=== PATIENT | female | born 1950 | race Caucasian/White ===

== ENCOUNTER 2021-08-16 15:49 | Observation (INO) | payer MEDICARE, SELFPAY ==
[2021-08-16] VITALS (17 sets, daily range): BP systolic 109–135; BP diastolic 52–105; PULSE 68–82; RESP 13–27; TEMP 36.2–36.6; O2SAT 97–100; BMI 38.3
--- NOTE | ~2021-08-16 | US_ITS ---
EXAMINATION: US carotid duplex BI DATE: 08/18/2021 12:12 INDICATION: Pontine infarct. TECHNIQUE: Grayscale, color Doppler, and pulsed Doppler images of the cervical carotid arteries were obtained. The degree of vessel stenosis is placed in one of the following categories: normal, <50%, 5 0-69%, >=70% but less than near-occlusion, near-occlusion, or total occlusion. Note that percent sten osis relative to normal distal artery lumen diameter is indirectly measured from velocity measurement s as described by Mukul, et al. Radiology 2003; 229:340-346. COMPARISON: None. FINDINGS: RIGHT: The right common carotid artery (CCA) peak systolic velocity (PSV) is 95 cm/s. The right internal car otid artery (ICA) PSV is 118 cm/s. The right ICA end-diastolic velocity (EDV) is 17 cm/s. The right I CA/CCA PSV ratio is 1.2. Grayscale and color Doppler images yield an estimate of <50% diameter reduct ion from plaque in the ICA. There is antegrade flow in the right vertebral artery. LEFT: The left CCA PSV is 104 cm/s. The left ICA PSV is 123 cm/s. The left ICA EDV is 11 cm/s. The left ICA /CCA PSV ratio is 1.2. Grayscale and color Doppler images yield an estimate of <50% diameter reductio n from plaque in the ICA. There is antegrade flow in the left vertebral artery. IMPRESSION: 1. <50% stenosis in the right internal carotid artery. 2. <50% stenosis in the left internal carotid artery. Reviewed, dictated and finalized at location A. GER CREDIT RISK
--- NOTE | ~2021-08-16 | MR_ITS ---
EXAMINATION: MR brain/brain stem wo/w con DATE: 08/17/2021 12:47 INDICATION: Left arm numbness TECHNIQUE: Magnetic resonance imaging (MRI) of the brain and brainstem was performed without and with 15 mL Multihance intravenous contrast. Sequences included sagittal and axial T1-weighted SE, axial d iffusion-weighted FS SE, axial T2*-weighted GRE, axial T2-weighted FLAIR, and axial T2-weighted FSE. Postcontrast axial and coronal T1-weighted SE was obtained. Apparent diffusion coefficient (ADC) maps were created. COMPARISON: 07/27/2021 FINDINGS: Decrease in size and degree of restricted diffusion to a now subacute infarct at the left side of the central amanda. No new regions of restricted diffusion to suggest acute infarction. No intracranial he morrhage or abnormal intracranial mass lesion. Stable appearance of scattered areas of nonspecific in creased T2-weighted signal intensity in the cerebral white matter, predominantly involving the deep a nd periventricular white matter. Small focus of susceptibility artifact on the T2*weighted images at the right cerebellum which is more subtle but present at this location on the prior study which likel y represents sequela of chronic nonspecific microhemorrhage at this location. There are no intraparen chymal signal abnormalities seen on the other pulse sequences. No abnormally enhancing lesions identi fied. The ventricles are symmetric and normal in size. There are no abnormal extra-axial fluid collec tions. Flow voids are seen in the cerebral arteries on the T2-weighted sequences consistent with thei r expected patency. Visualized orbits and soft tissues are unremarkable. IMPRESSION: 1. Interval evolution of a small now subacute infarct in the left amanda. No acute intracranial process or other more acute infarcts. 2. Single small focus of susceptibility artifact related to chronic microhemorrhage at the right cere bellum. 3. 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 Reviewed, dictated and finalized at location A. 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 Interval evolution of a small now subacute infarct in the left amanda. No acut e intracranial process or other more acute infarcts. 2. Single small focus of susceptibility artifact related to chronic microhemorr suzie at the right cerebellum. 3. Stable appearance of mild nonspecific cerebral white matter T2 hyperintensit y consistent with chronic small vessel ischemic disease.
--- NOTE | ~2021-08-16 | CT_ITS ---
EXAMINATION: CT brain wo con DATE: 08/16/2021 18:30 INDICATION: Left arm numbness and tingling TECHNIQUE: Computed tomography (CT) of the head was performed without intravenous contrast. The mA wa s adjusted according to patient size. Iterative reconstruction technique was employed. Exam dose: 60 5.33 mGy-cm total exam DLP. COMPARISON: 07/27/2021 MRI brain 01/22/2017 CT brain FINDINGS: No intracranial mass lesion or hemorrhage or cerebrovascular accident is detected. Bilateral carotid siphon internal carotid artery calcification. There is nonspecific diminished attenuation cerebral white matter, likely due to chronic small vessel ischemic changes. There is a focal area of subtle asymmetric lower attenuation in the posterior righ t parietal white matter; consider MRI correlation No subdural or epidural hematoma. No fracture or bone destruction of the cranial vault. Included paranasal sinuses and mastoid air marjan ls are normally developed and aerated. IMPRESSION: Cerebral atherosclerosis, chronic probable small vessel ischemic changes of cerebral whi te matter Focal subtle area of asymmetric relatively lower attenuation of the posterior right parietal white ma tter; consider MR correlation Reviewed, dictated and finalized at Location A. Reviewed, dictated and finalized at location A. IMPRESSION: Cerebral atherosclerosis, chronic probable small vessel ischemic c hanges of cerebral white matter Focal subtle area of asymmetric relatively lower attenuation of the posterior r ight parietal white matter; consider MR correlation
--- NOTE | 2021-08-16 16:12 | ECG_ITS ---
Measurements Intervals [place] Rate: 76 P: 18 [place]: 160 QRS: -1 QRSD: 101 T: 72 QT: 381 QTc: 431 Interpretive Statements SINUS RHYTHM LOW QRS VOLTAGE IN PRECORDIAL LEADS BORDERLINE ST-T WAVE ABNORMALITY- HIGH LATERAL LEADS BASELINE ARTIFACT- II, III, AVR, AVL, AVF, V1-V6 BORDERLINE ECG Electronically Signed On 08-16-2021 16:37:39 CDT by James Capellan D.O.
[2021-08-16 16:16] LABS: Glucose Point of Care 119 mg/dl (65-105)
[2021-08-16 17:02] LABS: Basophils Absolute Auto 0.1 K/mm3 (0.0-0.1); Basophils Percent Auto 0.8 % (0.2-1.2); Eosinophils Absolute Auto 0.2 K/mm3 (0-0.3); Eosinophils Percent Auto 2.8 % (0-4.4); Hematocrit 39.2 % (37.0-47.0); Hemoglobin 12.6 g/dL (12.0-15.0); Immature Granulocyte Absolute 0.02 K/mm3 (0.00-0.031); Immature Granulocyte Percent A 0.3 % (0-0.5); Lymphocytes Absolute Auto 1.11 K/mm3 (0.9-3.2); Lymphocytes Percent Auto 18.6 % (18.3-44.2); Mean Corpuscular HGB Conc 32.1 g/dl (32-36); Mean Corpuscular Hemoglobin 28.5 pg (26-34); Mean Corpuscular Volume 88.7 fl (80-100); Mean Platelet Volume 10.6 fl (7.4-10.4); Monocytes Absolute Auto 0.5 K/mm3 (0.1-0.6); Neutrophils Absolute Auto 4.1 K/mm3 (1.3-6.7); Neutrophils Percent Auto 69.5 % (45.5-73.1); Platelet Count Result 292 k/mm3 (150-375); Red Blood Count 4.42 M/mm3 (4.2-5.4); Red Cell Distribution Width 14.3 % (11.5-14.5)
[2021-08-16 17:17] LABS: Alanine Aminotransferase 29 U/L (4-35); Alkaline Phosphatase 73 U/L (38-126); Anion Gap 8 mmol/L (8-16); Aspartate Amino Transferase 34 U/L (14-36); Bilirubin,Total 0.5 mg/dL (0.2-1.3); Blood Urea Nitrogen 13 mg/dL (7-17); Calcium 9.7 mg/dL (8.4-10.2); Carbon Dioxide 21 mmol/L (22-30); Chloride 108 mmol/L (98-107); Estimated CRCL calculation 77 ml/min; Estimated Glomerular Filt Rate > 60; Glucose 122 mg/dL (65-110); Potassium 4.6 mmol/L (3.4-5.0); Sodium 137 mmol/L (137-145)
[2021-08-16 17:27] LABS: Troponin I < 0.012 ng/mL (0.000-0.034)
--- NOTE | 2021-08-16 18:53 | ED.GENADULT ---
HPI - General Adult General Chief complaint: Neuro Symptoms/Deficit Stated complaint: L ARM PAIN AND TINGLING Time Seen by Provider: 08/16/21 16:10 History of Present Illness HPI narrative: Patient is a 71-year-old female who presents ER with concerns for CVA. She reports she woke up while sleeping and had pain in her left shoulder and pain in her left arm. She has some tingling going into her fingers. It was 8/10 pain. She then took a [place] and it has gone down to 2/10 pain. Patient recently discharged from [facility] after having a CVA. She is currently at [facility]. Denies any weakness. No facial droop or slurred speech. Patient is currently taking aspirin as she has finished her 21 days of Plavix. Patient had 2 strokes last month. Related Data Allergies Allergy/AdvReac Type Severity Reaction Status Date / Time azithromycin Allergy Intermediate Rash Verified 07/21/21 17:53 Penicillins Allergy Intermediate Rash Verified 07/21/21 17:53 Review of Systems Review of Systems: All systems reviewed & are unremarkable except as noted in HPI and below Constitutional: Constitutional: Denies chills, Denies fever(s) and Denies weakness Cardiovascular: Cardiovascular: Denies chest pain, Denies rapid heart rate and Denies radiating jaw, neck or arm pain Respiratory: Respiratory: Denies cough and Denies dyspnea Gastrointestinal: Gastrointestinal: Denies abdominal pain, Denies nausea and Denies vomiting Musculoskeletal: Musculoskeletal: Denies back pain, Denies arthralgias, Denies joint swelling and Denies muscle cramps Comments: Left arm pain but not in the joint. Neurologic: Denies focal weakness (Chronic right upper extremity weakness) and Reports numbness PMFSH Past Medical History Medical History (Updated 08/16/21 @ 19:27 by Az Tovar MD) Bipolar 1 disorder CVA (cerebral vascular accident) Hyperlipidemia Hypertension Insomnia Irritable bowel syndrome Surgical History Surgical History (Updated 08/16/21 @ 18:56 by Az Tovar MD) History of inguinal hernia repair Family History Family History (Updated 07/21/21 @ 17:57 by Simona Olivo RN) Daughter No problems noted. Mother FH: mental illness Father FH: mental illness Cancer Cerebrovascular accident Social History Social History (Updated 07/21/21 @ 16:32 by Linda Johnson DO) Social History: single-story home, lives alone. Daughter will assist with medications and will hire someone for housekeeping and laundry. Patient's daughter lives close Smoking status: Never smoker Alcohol intake: never Substance use: never Substance use type: does not use Gender identity (if verbalized by the patient): Female Spiritual care concerns: No Agree to blood products: No Exam Narrative: GENERAL: Chronically ill-appearing, well-nourished, and in no acute distress. HEAD: Normocephalic, atraumatic. EYES: PERRL and EOMI. CHEST: Clear to auscultation. No respiratory distress. HEART: Regular rate and rhythm. Normal peripheral pulses. ABDOMEN: Soft, nontender, nondistended. EXTREMITIES: Paralysis right upper extremity with contracture. Normal strength of the right upper extremity. Patient able to lift her lower extremities. SKIN: Warm, dry, no rash. No bruising to left arm unrevealing. Extends from hand up past the elbow. NEURO: Alert and oriented x3. No facial droop or dysarthria. No expressive aphasia. Normal strength in her left upper extremity which is the area of concern. PSYCH: Normal mood and affect. Course Course Emergency Course: Troponin negative. Irregularity on CT scan on the right side posteriorly. Discussed this result with the patient and her daughter. We will plan admission to the hospital with observation. Will obtain MRI. Discussed with Dr. Woods. Will restart plavix. Vital Signs Vital signs: Vital Signs Temperature 97.1 F L 08/16/21 15:51 Pulse Rate 79 08/16/21 15
--- NOTE | 2021-08-16 19:25 | PC.NURSE ---
Assumed care of pt at this time. Pt alert and upright on stretcher, states she no longer has numbness/tingling in extremity. Pt and family updated on POC.
[2021-08-16] MEDS: CLOPIDOGREL BISULFATE 75 MG TABLET PO (20:48)
--- NOTE | 2021-08-16 21:42 | PC.NURSE ---
This patient, Brandie Powell, was admitted to IMU Room 232-01 on 08/15/21 at 1923. Patient/family oriented to hospital policies and general routines including ID bracelet, bed and alarms, visiting hours, pain management, procedures, bathroom and other care routines, personal items, smoking policy, room service/diet, and visiting hours. Information on how to activate the Rapid Response Team has been discussed. Patient/Family are encouraged to report perceived risks to care and to ask questions if they do not understand what they are told or what they should do.
--- NOTE | 2021-08-16 21:45 | PM.IMHP ---
H&P: HPI History of Present Illness Date/Time: 08/16/21 20:55 Chief Complaint: Left arm pain and numbness Narrative: 71-year-old female with a past medical history of hypertension, hyperlipidemia, recently diagnosed diabetes, and 2 strokes in July 2021 who presented to the ER from [facility] due to new onset of left arm pain, numbness and tingling. The patient reports she laid down to take a nap and woke from sleep at 2:30 p.m. due to arm pain. She was initially having significant difficulty moving the arm and was dropping things. She denied any weakness in her left lower extremity or any left lower extremity pain. She denies having slept on her arm. She is still having some the not missing tingling in her arm. She did take a pain pill which decreased her pain from an 8/10 in intensity down to a 2/10 in intensity. She has come chronic right-sided facial droop due to her previous stroke. 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 She occasionally feels like she has cotton in her mouth and has intermittent difficulty speaking but nothing new today. She denies any vision changes. She denies any current headache. She does have a known enlarged thyroid the diagnosed in July with her for stroke but she has not followed up with her outpatient thyroid ultrasound yet. She denies any actual thyroid disease. She was recently diagnosed with diabetes and started on metformin. Her glucoses have been in the low 110-130 range. She reports a good appetite and states that she is hungry. She does have a large neck circumference and is obese. She denies a history of being tested for obstructive sleep apnea. She denies excessive daytime sleepiness. She has never had cardiac rhythm issue or history of AFib. She was placed on Plavix initially following her stroke and was recently transitioned back down to aspirin after completing 21 days of Plavix. Review of Systems Review of Systems: 12 systems were reviewed with pertinent positives and negatives per HPI. Except as documented in the HPI, all other systems were reviewed and are negative. [facility] Past Medical History Medical History Bipolar 1 disorder CVA (cerebral vascular accident) Hyperlipidemia Hypertension Insomnia Irritable bowel syndrome Surgical History Surgical History (Updated 08/16/21 @ 21:51 by Jennifer Govea DO) History of gastric bypass She initially a gastric bypass surgery in approximately 1977. Then in the she had dehiscence of her fernando and had to have a partial bowel resection. History of inguinal hernia repair Hx of cholecystectomy Family History Family History Daughter No problems noted. Mother FH: mental illness Father FH: mental illness Cancer Cerebrovascular accident Social History Social History (Updated 08/16/21 @ 21:54 by Jennifer Govea DO) Social History: She has been for 8 years. prior to her stroke July 2021 the patient lived in her own home and was independent in activities of daily living. Following her stroke she went to acute rehab and then moved to [facility] where her daughter works. She is a lifelong nonsmoker and does not drink alcohol or use illicit substances. She is currently ambulating with a walker. 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 She has 1 daughter. Code status: Full code Healthcare power of litigation attorney: Daughter Smoking status: Never smoker Alcohol intake: never Substance use: never Occupation/Education: retired Additional occupation/education comments: [employer] Gender identity (if verbalized by the patient): Female Spiritual care concerns: No Agree to blood products: No Meds Home Medications and Allergies Home Medications Medication Instructions Recorded Confirmed Type Unisom 1 ea PO HS
[2021-08-16 21:46] LABS: Troponin I < 0.012 ng/mL (0.000-0.034)
[2021-08-16 21:46] LABS: Glucose Point of Care 105 mg/dl (65-105)
[2021-08-16] MEDS: ALPRAZolam (*CRX) 0.5 MG TABLET PO (23:38)
[2021-08-16] MEDS: ATORVASTATIN 40 MG TABLET PO (23:38)
[2021-08-16 23:49] LABS: Troponin I < 0.012 ng/mL (0.000-0.034)
[2021-08-17] VITALS (14 sets, daily range): BP systolic 106–129; BP diastolic 45–70; PULSE 68–86; RESP 18–22; TEMP 35.9–37; O2SAT 93–99
[2021-08-17] MEDS: ACETAMINOPHEN 325 MG TABLET 650 MG PO ×5 (00:03→20:25)
[2021-08-17] MEDS: diphenhydrAMINE HCl CAP 25 MG CAPSULE PO ×2 (00:03→20:26)
--- NOTE | 2021-08-17 01:06 | PC.NURSE ---
Daylight Savings Time For Daylight Savings Time Ending in the Fall - Clocks are moved back. For Daylight Savings Time Beginning in the Spring - Clocks are moved ahead. For [facility], the time of change occurs at 0200 hrs. Time is taken from the hopper feeder. This entry on the patient's chart recognizes the change in time reflected during documentation. Example: 2 entries for vital signs may be charted for 0200 hrs.
[2021-08-17 08:55] LABS: Glucose Point of Care 110 mg/dl (65-105)
[2021-08-17] MEDS: CLOPIDOGREL BISULFATE 75 MG TABLET PO (10:00)
[2021-08-17] MEDS: buPROPion HCL 75 MG TABLET PO (10:00)
[2021-08-17] MEDS: metFORMIN HCL 500 MG TABLET PO ×2 (10:01→17:06)
[2021-08-17] MEDS: ASPIRIN 81 MG CHEWABLE TABLET PO (10:03)
[2021-08-17] MEDS: TOLNAFTATE 1% POWDER 45 GM BTL 1 APPLIC TOPICAL ×2 (12:10→17:06)
[2021-08-17 13:07] LABS: Glucose Point of Care 110 mg/dl (65-105)
[2021-08-17] MEDS: LIDOCAINE 5% PATCH 1 PATCH TRANSDERM (13:29)
--- NOTE | 2021-08-17 15:12 | PM.IMPN ---
Progress Note: A&P Assessment and Plan (1) Stroke-like symptoms: Code(s): R29.90 - Unspecified symptoms and signs involving the nervous system Status: Acute Assessment and Plan: The patient has paresthesias in pain of her left upper extremity. CT of brain suggest possible subtle area of focal asymmetric attenuation posterior right parietal white matter concerning for stroke. MRI of the brain performed today showed no acute stroke subacute stroke in left amanda Neurology has been consulted await their recommendation. Patient recently off Plavix with new symptoms she has restarted back on Plavix along with baby aspirin Will monitor neuro checks. (2) Anxiety: Code(s): F41.9 - Anxiety disorder, unspecified Status: Acute Assessment and Plan: Alprazolam p.r.n. (3) Extension of stroke: Code(s): I63.9 - Cerebral infarction, unspecified Status: Acute (4) CVA (cerebral vascular accident): Code(s): I63.9 - Cerebral infarction, unspecified Status: Acute Assessment and Plan: Recent left paramedian CVA on 07/18/2021 Another stroke on 07/27/2021 in left amanda On aspirin and atorvastatin added on Plavix (5) Bipolar 1 disorder: Code(s): F31.9 - Bipolar disorder, unspecified Status: Acute Assessment and Plan: Sees psych at [facility] (6) Type 2 diabetes mellitus: Code(s): E11.9 - Type 2 diabetes mellitus without complications Status: Acute Assessment and Plan: A1c noted at 7.6% On metformin (7) Hypertension: Code(s): I10 - Essential (primary) hypertension Status: Acute (8) Irritable bowel syndrome: Code(s): K58.9 - Irritable bowel syndrome without diarrhea Status: Acute (9) Hyperlipidemia: Code(s): E78.5 - Hyperlipidemia, unspecified Status: Acute Assessment and Plan: Statin Subjective Date/time seen: 08/17/21 15:12 Interval history: HPI:71-year-old female with a past medical history of hypertension, hyperlipidemia, recently diagnosed diabetes, and 2 strokes in July 2021 who presented to the ER from [facility] due to new onset of left arm pain, numbness and tingling. The patient reports she laid down to take a nap and woke from sleep at 2:30 p.m. due to arm pain. She was initially having significant difficulty moving the arm and was dropping things. She denied any weakness in her left lower extremity or any left lower extremity pain. She denies having slept on her arm. She is still having some the not missing tingling in her arm. She did take a pain pill which decreased her pain from an 8/10 in intensity down to a 2/10 in intensity. She has come chronic right-sided facial droop due to her previous stroke. 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 She occasionally feels like she has cotton in her mouth and has intermittent difficulty speaking but nothing new today. She denies any vision changes. She denies any current headache. She does have a known enlarged thyroid the diagnosed in July with her for stroke but she has not followed up with her outpatient thyroid ultrasound yet. She denies any actual thyroid disease. She was recently diagnosed with diabetes and started on metformin. Her glucoses have been in the low 110-130 range. She reports a good appetite and states that she is hungry. She does have a large neck circumference and is obese. She denies a history of being tested for obstructive sleep apnea. She denies excessive daytime sleepiness. She has never had cardiac rhythm issue or history of AFib. She was placed on Plavix initially following her stroke and was recently transitioned back down to aspirin after completing 21 days of Plavix. 08/17/2021 intermittent left arm tingling and numbness persist she is going for MRI. No chest pain or shortness of breath Review of Systems Review of Systems: [email or web address]
[2021-08-17 17:44] LABS: Glucose Point of Care 100 mg/dl (65-105)
[2021-08-17 20:01] LABS: Glucose Point of Care 98 mg/dl (65-105)
[2021-08-17] MEDS: ATORVASTATIN 40 MG TABLET PO (20:25)
[2021-08-17] MEDS: ALPRAZolam (*CRX) 0.5 MG TABLET PO (20:26)
[2021-08-18] VITALS (7 sets, daily range): BP systolic 118–147; BP diastolic 43–56; PULSE 63–86; RESP 20–24; TEMP 36.1–36.4; O2SAT 97–98
--- NOTE | 2021-08-18 | ECHO_ITS ---
Patient Info Name: Brandie Powell Age: 71 years : 1950 Gender: Female Ht: 62 in Wt: 209 lbs BSA: 2.08 m2 HR: 85 bpm BP: 118 / 43 mmHg Heart Rhythm: Sinus Rhythm Technical Quality: Fair Exam Date: 08/18/2021 9:49 AM Exam Location: [facility] Patient Status: Outpatient Admit Date: 08/16/2021 Staff Ordering Physician: Eduar Bennett MD Tetryl Boiling Tub Operator: Steff Tellez RDCS Attending Provider: Jennifer Govae DO Exam Type: CA echo dop bubble study w con Study Info Indications - STROKE Complete two-dimentional, color flow and Doppler transthoracic echocardiogram is performed with agitated saline and with contrast to opacify the left ventricle and to improve the delineation of the left ventricle endocardial borders. Contrast/Agitated Saline Contrast/Ag. Saline: Agitated Saline Amount: 20.00 ml Administered By: Sammy Goodson RN Existing IV Access: Yes IV Access Condition: patent with no signs of infiltration Contrast/Ag. Saline: Definity Amount: 1.00 ml Administered By: Sammy Goodson RN Existing IV Access: Yes IV Access Condition: patent with no signs of infiltration Summary 1. Definity contrast injected to improve visualization. 2. Left ventricular systolic function is normal, estimated at 60-65%. 3. The left ventricular diastolic function is grade I diastolic dysfunction. 4. There is mild aortic valve sclerosis. 5. Intact interatrial septum visualized by agitated saline imaging. 6. No intracardiac shunt seen with agitated saline contrast injection. Left Ventricle Left ventricular chamber dimension is normal. Left ventricular systolic function is normal, estimated at 60-65%. The left ventricular diastolic function is grade I diastolic dysfunction. Definity contrast injected to improve visualization. Right Ventricle Right ventricular chamber dimension is normal. Left Atria Left atrial chamber dimension is normal. Right Atria Right atrial chamber dimension is normal. Atrial Septum Intact interatrial septum visualized by agitated saline imaging. Aortic Valve The aortic valve is trileaflet. There is mild aortic valve sclerosis. Pulmonic Valve The pulmonic valve is not well visualized. Mitral Valve The mitral valve has normal leaflets. Tricuspid Valve The tricuspid valve leaflets are normal. Pericardium/Pleural The pericardium appears normal. Aorta The aortic root size at the sinus of Valsalva is normal. Left Ventricular Outflow Tract Name Value Normal LVOT 2D LVOT Diameter 2.0 cm LVOT Doppler LVOT Peak Gradient 4 mmHg LVOT Mean Gradient 2 mmHg LVOT VTI 17 cm LVOT VTI/AV VTI Ratio 0.8 LVOT Stroke Volume 52 ml LVOT CO 4.3 l/min LVOT CI 2.1 l/min/m2 Pulmonic Valve
[2021-08-18 05:21] LABS: Basophils Absolute Auto 0.1 K/mm3 (0.0-0.1); Basophils Percent Auto 0.8 % (0.2-1.2); Eosinophils Absolute Auto 0.3 K/mm3 (0-0.3); Eosinophils Percent Auto 4.7 % (0-4.4); Hematocrit 37.6 % (37.0-47.0); Hemoglobin 12.1 g/dL (12.0-15.0); Immature Granulocyte Absolute 0.01 K/mm3 (0.00-0.031); Immature Granulocyte Percent A 0.2 % (0-0.5); Lymphocytes Absolute Auto 1.85 K/mm3 (0.9-3.2); Lymphocytes Percent Auto 31.4 % (18.3-44.2); Mean Corpuscular HGB Conc 32.2 g/dl (32-36); Mean Corpuscular Hemoglobin 27.8 pg (26-34); Mean Corpuscular Volume 86.2 fl (80-100); Mean Platelet Volume 10.3 fl (7.4-10.4); Monocytes Absolute Auto 0.6 K/mm3 (0.1-0.6); Monocytes Percent Auto 9.3 % (2.6-8.5); Neutrophils Absolute Auto 3.2 K/mm3 (1.3-6.7); Neutrophils Percent Auto 53.6 % (45.5-73.1); Platelet Count Result 292 k/mm3 (150-375); Red Blood Count 4.36 M/mm3 (4.2-5.4); Red Cell Distribution Width 14.1 % (11.5-14.5); White Blood Count 5.9 K/mm3 (4.5-10.0)
[2021-08-18 05:39] LABS: Anion Gap 5 mmol/L (8-16); Blood Urea Nitrogen 13 mg/dL (7-17); Calcium 9.7 mg/dL (8.4-10.2); Carbon Dioxide 26 mmol/L (22-30); Chloride 107 mmol/L (98-107); Estimated CRCL calculation 68 ml/min; Estimated Glomerular Filt Rate > 60; Glucose 100 mg/dL (65-110); Potassium 4.1 mmol/L (3.4-5.0); Sodium 138 mmol/L (137-145)
[2021-08-18 07:21] LABS: Glucose Point of Care 116 mg/dl (65-105)
[2021-08-18] MEDS: metFORMIN HCL 500 MG TABLET PO ×2 (09:02→17:23)
[2021-08-18] MEDS: ASPIRIN 81 MG CHEWABLE TABLET PO (09:02)
[2021-08-18] MEDS: buPROPion HCL 75 MG TABLET PO (09:02)
[2021-08-18] MEDS: CLOPIDOGREL BISULFATE 75 MG TABLET PO (09:02)
[2021-08-18] MEDS: PERFLUTREN LIPID MICROSPHERES 1.5 ML VIAL DILUTED TO 10 ML TOTAL VOLUME IV PUSH (10:41)
--- NOTE | 2021-08-18 11:01 | PCOTNOTE ---
Attempted OT treatment, patient declined therapy at this time, reporting had a very busy morning and would like to rest, will follow and attempt at later time.
[2021-08-18] MEDS: ALPRAZolam (*CRX) 0.25 MG TABLET PO (11:58)
[2021-08-18] MEDS: TOLNAFTATE 1% POWDER 45 GM BTL 1 APPLIC TOPICAL (11:59)
[2021-08-18 12:17] LABS: Glucose Point of Care 92 mg/dl (65-105)
--- NOTE | 2021-08-18 14:55 | PCOTNOTE ---
Attempted OT treatment, patient reports it has been a long day and will work with therapy in the morning Will follow and attempt tomorrow. RN notified.
--- NOTE | 2021-08-18 14:58 | PCNSR ---
On 08/18/21, the student, Janay Guerra, provided care and completed [facility] documentation on this patient. I have reviewed the student's documentation and agree with the findings.
[2021-08-18 16:34] LABS: Glucose Point of Care 104 mg/dl (65-105)
--- NOTE | 2021-08-18 17:49 | PM.DS ---
DS: Admitting Diagnosis Discharge Date 08/18/2021 Admitting Diagnosis Stroke-like symptoms DS: Discharge Diagnosis Discharge Diagnosis (1) Stroke-like symptoms: Code(s): R29.90 - Unspecified symptoms and signs involving the nervous system Status: Acute Assessment and Plan: The patient has paresthesias in pain of her left upper extremity. CT of brain suggest possible subtle area of focal asymmetric attenuation posterior right parietal white matter concerning for stroke. MRI of the brain performed 08/17/2021 showed no acute stroke but subacute stroke in left amanda Neurology has been consulted and discussed with him Patient recently off Plavix with new symptoms she has restarted back on Plavix along with baby aspirin Patient likely had TIA. Will continue on aspirin Plavix and statin as ordered (2) Anxiety: Code(s): F41.9 - Anxiety disorder, unspecified Status: Acute Assessment and Plan: Alprazolam p.r.n. (3) Extension of stroke: Code(s): I63.9 - Cerebral infarction, unspecified Status: Acute (4) CVA (cerebral vascular accident): Code(s): I63.9 - Cerebral infarction, unspecified Status: Acute Assessment and Plan: Recent left paramedian CVA on 07/18/2021 Another stroke on 07/27/2021 in left amanda On aspirin and atorvastatin added on Plavix (5) Bipolar 1 disorder: Code(s): F31.9 - Bipolar disorder, unspecified Status: Acute Assessment and Plan: Sees psych at [facility] (6) Type 2 diabetes mellitus: Code(s): E11.9 - Type 2 diabetes mellitus without complications Status: Acute Assessment and Plan: A1c noted at 7.6% On metformin (7) Hypertension: Code(s): I10 - Essential (primary) hypertension Status: Acute (8) Irritable bowel syndrome: Code(s): K58.9 - Irritable bowel syndrome without diarrhea Status: Acute (9) Hyperlipidemia: Code(s): E78.5 - Hyperlipidemia, unspecified Status: Acute Assessment and Plan: Statin DS: Summary Hospital Course Hospital Course: See above Time Spent with Patient Time attestation: Total time spent providing and/or coordinating discharge services: 45 minutes Exam Narrative: General: No acute distress, obese, appears stated age HEENT: Mucous membranes are moist, no oral pharyngeal erythema Respiratory: Clear to auscultation bilaterally, no increased work of breathing Cardiovascular: Regular rate, regular rhythm, no murmurs, 2+ bilateral radial pedal pulses Gastrointestinal: Obese, soft, nontender, normoactive bowel sounds Skin: Generalized pallor, non jaundice Musculoskeletal: No clubbing, cyanosis or edema Neurological: 2/4 naval police coxswain strength on the right, 4/5 naval police coxswain strength on the left, mild right facial droop, speech is clear and fluent Psychiatric: Appropriate mood and affect, pleasant and cooperative : Continent of urine Hematologic/lymphatic: No petechiae, no bruising, no anterior cervical or submandibular lymphadenopathy DS: Data Data Completed and Pending Completed studies during hospitalization: Ordering Physician: Eduar Bennett MD Date of Service: 08/18/21 Procedure(s): CA echo dop bubble study w con Accession Number(s): [id number] cc: Eduar Bennett MD; Karl, Jacque Decker CLINICAL LAB ASSISTANT-BC~ Patient Info Name: Brandie Powell Age: 71 years : 1950 Gender: Female Ht: 62 in Wt: 209 lbs BSA: 2.08 m2 HR: 85 bpm BP: 118 / 43 mmHg Heart Rhythm: Sinus Rhythm Technical Quality: Fair Exam Date: 08/18/2021 9:49 AM Exam Location: [facility] Patient Status: Outpatient Admit Date: 08/16/2021 Staff Ordering Physician: Eduar Bennett MD Commercial Insurance Underwriter: Steff Tellez RDCS Attending Provider: Jennifer Govea DO Exam Type: CA echo dop bubble study w con Study
== END 2021-08-18 18:16 ==
LOC: ANHED 19:51 → ANHIMU 22:48
PROVIDERS: Admitting Provider Internal Medicine; Emergency Provider Emergency Medicine; PCP Nurse Practitioner Family; Visit Provider Internal Medicine
DX: G81.94 Hemiplegia, unspecified affecting left nondominant side (principal); R29.90 Unspecified symptoms and signs involving the nervous system; I10 Essential (primary) hypertension; E78.5 Hyperlipidemia, unspecified; E11.9 Type 2 diabetes mellitus without complications; E04.9 Nontoxic goiter, unspecified; F41.9 Anxiety disorder, unspecified; F31.9 Bipolar disorder, unspecified; K58.9 Irritable bowel syndrome, unspecified; Z79.84 Long term (current) use of oral hypoglycemic drugs; Z86.73 Personal history of transient ischemic attack (TIA), and cerebral infarction without residual deficits
CPT/HCPCS: 36415; 70450; 70553; 80048; 80053; 82948; 84484; 85025; 93005; 93880; 96374; 96375; 97162; 97166; 99285; A9270; A9577; C8929; G0378; Q9957

== ENCOUNTER 2022-07-07 08:04 | Outpatient (CLI) | payer MEDICARE, SELFPAY ==
--- NOTE | 2022-08-03 20:48 | WPDSLEEPSTUD ---
Sleep Study Date of Study: 07/07/22 Ordering Provider: Sukumar Lakhani MD Interpreting Physician: Nathalia Leyva DO Sleep Study Type: Polysomnogram Height: 1.57 m Weight: 84.368 kg Body Mass Index: 34.0 Neck Circumference (inches): 16 [place]: 7 Reason for Sleep Study Multiple strokes within a short time period Sleep History The patient is a 72-year-old female with hypertension, diabetes, bipolar disorder, stroke x3, right foot drop, hyperlipidemia, insomnia, irritable bowel syndrome, OCD and right-sided weakness that had a sleep study ordered by her primary care physician for evaluation of sleep apnea. The patient denies awakening from sleep short of breath. She denies awakening at night with heartburn, belching or cough. She denies snoring loudly enough that others complain. She denies having trouble sleeping when she has a cold. She denies waking up gasping for air throughout the night. She denies having breathing problems at night observed by herself or others. She denies sweating excessively at night. She denies having heart palpitations or irregular heartbeats during the night. She occasionally falls asleep during the day but never while driving. She denies sleep paralysis, cataplexy and hypnagogic / hypnopompic hallucinations. She rarely has trouble at school or work due to sleepiness. She denies having nightmares. She denies remembering her dreams. She denies having thoughts racing through her mind. She denies feeling sad, depressed or anxious. She denies having muscular tension. She denies noticing parts of her body jerk. He denies kicking during the night. She denies having crawling and aching feelings in her legs as well as leg pain during the night. She denies grinding her teeth during sleep and awakening with morning jaw pain. She denies being bothered by pain during the day and denies being awakened by pain during the night. She denies waking up feeling stiff in the morning. She denies waking up with sore achy muscles. She denies waking up with pain in the neck, spine and other joints. The patient does not have a set bedtime on weekdays or weekends. It takes her 30 minutes to fall asleep. She wakes up at 4:00 a.m. to use the restroom. She gets 3-4 hours of sleep per night. she currently lives alone. She does not consume any caffeinated beverages within 2 hours of bedtime. She does not engage in physical exercise before bedtime. She will read and watch television before falling asleep. She will take naps in the afternoon or the evening and they are refreshing. She drinks 1 cup of coffee per day. She will drink alcohol occasionally. He denies tobacco and recreational drug use. [facility] Past Medical History Medical History Bipolar 1 disorder BMI 34.0-34.9,adult BMI over 35 Chronic nasal congestion CVA (cerebral vascular accident) Foot drop, right Gastric ulcer Hearing loss Hyperlipidemia Hypertension Insomnia Irritable bowel syndrome Leg edema Manic-depressive disorder Neuropathy OCD (obsessive compulsive disorder) Right foot pain Right sided weakness Shoulder pain, bilateral Sleep disturbance Transient paralysis of left leg Surgical History Surgical History History of foot surgery History of gastric bypass She initially a gastric bypass surgery in approximately 1977. Then in the she had dehiscence of her fernando and had to have a partial bowel resection. History of inguinal hernia repair Hx of cholecystectomy Family History Family History Daughter No problems noted. Mother FH: mental illness Father FH: mental illness Cancer Sibling Cerebrovascular accident Other Family history of alcoholism Family history of blood dyscrasia Social History Social History (Reviewed 08/03/22 @ 20:59 by
[2022-08-03 20:50] VITALS: BMI 34.0
== END 2022-07-08 06:54 | disposition home or self-care (01) ==
PROVIDERS: PCP Family Medicine; Visit Provider Family Medicine
DX: G47.19 Other hypersomnia (principal); G47.9 Sleep disorder, unspecified
CPT/HCPCS: 95810

== ENCOUNTER 2025-02-12 09:12 | Outpatient (CLI) | payer MEDICARE, SELFPAY ==
--- NOTE | ~2025-02-12 | XR_ITS ---
MODIFIED ESOPHAGRAM HISTORY: Dysphagia. TECHNIQUE: Modified barium esophagram was performed on 02/12/2025. I administered fluoroscopy and perfo rmed the exam with speech pathologist. Patient was seated for lateral fluoroscopic imaging for inges tion of thin liquids, pudding, solids and quantified amounts, followed by thin liquids in uncontrolle d amounts. This was recorded on tape. A single fluoroscopic spot image was also recorded. The DAP for this procedure was 1.877 Gycm2. The amount of fluoroscopy time used during this procedure was 2.1 mi nutes. FINDINGS: Oral stage: Adequate function. Pharyngeal stage: There is flash laryngeal penetration without aspiration. Otherwise adequate functio n. Cervical/esophageal stage: Adequate function. IMPRESSION: Recurrent flash laryngeal penetration without aspiration. Please correlate with speech p athologist findings and specific feeding recommendations. Reviewed, dictated and finalized at location A. IMPRESSION: Recurrent flash laryngeal penetration without aspiration. Please c orrelate with speech pathologist findings and specific feeding recommendations.
--- OUTSIDE RECORDS SUMMARY | 2025-02-12 09:44 | XMS_ITS | Clinical Summary ---
Author Organization [facility] Address [address] [place] [address] Care Team Providers Care Parcel Post Weigher Name Role Phone Sukumar Lakhani MD Primary Care Provider [phone] Social History Tobacco Use Types Packs/Day Years Used Date Smoking Tobacco: Never Assessed Comments Unknown Sex and Gender Information Value Date Recorded Sex Assigned at Not on file Legal Sex Female 3:21 PM CDT Gender Identity Not on file Sexual Orientation Not on file Plan of Treatment Health Maintenance Due Date Last Done Comments Colorectal Cancer Screening Colonoscopy (10 Years) 1950 Hepatitis C 1967 DTaP, Tdap and Td Vaccines ( 1 - Tdap) 1968 Pneumococcal Vaccine: 50+ Ye ars (1 of 1 - PCV) 1999 Zoster Vaccines (1 of 2) 1999 Annual Medicare Wellness Visit 2014 Dexa Scan (General) 2014 COVID-19 Vaccine ( - 2023-2 5 season) 2024 RSV Immunization or 60+ Years (1 - 1-dose 75+ series) 2024 PHQ-2 (Physician [place]) 10/11/2024 Meningococcal B Vaccine Aged Out No l onger eligible based on patient's age to complete this topic Meningococcal Vaccine Aged Out No moise dolores eligible based on patient's age to complete this topic RSV Immunizations Under 20 Months Aged Out No longer eligible based on patient's age to complete this topic Insurance MEDICARE [facility] Care Teams Parcel Post Weigher Relationship Specialty Start Date End Date Sukumar Lakhani MD [address] [address] PCP - General FAMILY PRACTICE 03/11/23
--- OUTSIDE RECORDS SUMMARY | 2025-02-12 09:44 | XMS_ITS | Clinical Summary ---
Author Organization [facility] [employer] Address [address] [facility] [place] [address] Care Team Providers Care Employment Law Attorney Name Role Phone Di Riley MD Unavailable Jacque Barajas FOREST ENGINEER-PARIMUTUEL TICKET CASHIER Primary Care Provider Source Comments [facility],non-owned Affiliates and Associated Physician Practices is amultiple site organization consisting of ambulatory clinics and hospital sitesin [place], [place] and [place]. This disclosure is being madepursuant to the Care Everywhere program and may not contain all information available regarding this patient. Last updated 18.[facility] [employer] Allergies Active Allergy Reactions Criticality Noted Date Comments Azithromycin Urticaria,Swelling Medium 07/19/2021 Melatonin Psychiatric High 12/11/2021 Pt reports she will not take melatonin, had bad reaction Penicillins Anaphylaxis High 07/18/2021 Medications * Be aware that medications may not be up to date on this document. Alwaysverify current medications with the patient. aspirin (ASPIRIN) 81 MG chew tablet Take 1 (one) tablet by mouth once daily 30 tablet 11 1 Active atorvastatin (LIPITOR) 40 MG tablet Take 1 (one) tablet by mouth at bedtime 30 tablet 11 1 Active metFORMIN (GLUCOPHAGE) 500 MG tablet Take 1 (one) tablet by mouth 2 times daily with morning and evening meal Please for fisrt 7 days only take 1 pill in the morning then on day 8 start taking one pill in the morning and one pill in the evening until you see your primary care physician 180 tablet 4 1 Active acetaminophen CR (TYLENOL ARTHRITIS PAIN) 650 MG tablet Take 650 mg by mouth every 8 hours as needed for Pain Take 2 tabs q8h PRN pain Active ALPRAZolam (XANAX) 0.25 MG tablet Take 0.25 mg by mouth nightly as needed for Anxiety or Insomnia Active clopidogrel (PLAVIX) 75 MG tablet Take 75 mg by mouth once daily Active eszopiclone (LUNESTA) 3 MG tablet Take 3 mg by mouth at bedtime Active pregabalin (LYRICA) 75 MG capsule Take 75 mg by mouth 3 times daily Active VRAYLAR 3 MG capsule Take 3 mg by mouth once daily 2 Active doxylamine (UNISOM) 25 MG tablet Take 25 mg by mouth nightly as needed for Insomnia Active promethazine (PHENERGAN) 25 MG tablet Take 1 (one) tablet by mouth every 6 hours as needed for Nausea/Vomitin g 30 tablet 2 Active Active Problems Problem Noted Date Diagnosed Date Intestinal adhesions with partial obstruction Leukocytosis 12/11/2021 VENITA (acute kidney injury) 12/11/2021 Abdominal pain, generalized 12/10/2021 Non-intractable vomiting 12/10/2021 Dysarthria 07/18/2021 Right arm weakness 07/18/2021 Leg pain, right 07/18/2021 Left pontine stroke 07/18/2021 Resolved Problems Problem Noted Date Diagnosed Date Resolved Date Dehydration 12/10/2021 12/25/2021 Family History Medical History Relation Name Comments CVA Brother Cancer - Lung Father Relation Name Status Comments Brother Father Social History Tobacco Use Types Packs/Day Years Used Date Smoking Tobacco: Never Smokeless Tobacco: Never Alcohol Use Standard Drinks/Week Comments Not Currently 0 (1 standard drink = 0.6 oz pur e alcohol) AUDIT-C Answer Date Recorded Q1: How often do you have a drink containing alc ohol? Never 12/10/2021 Q2: How many drinks containi ng alcohol do you have on a typical day when you are drinking? Patient declined 12/10/2021 Q3: How often do you have si x or more drinks on one occasion? Patient declined 12/10/2021 PHQ-2 Answer Date Recorded PHQ2 TOTAL SCORE 1 07/20/2021 Hunger Vital Sign Answer Date Recorded Within the past 12 months, y ou worried that your food would run out before you got the money to buy more. Never true 12/13/19 22 Within the past 12 months, t he food you bought just didn't last and you didn't have money to get more. Never true 12/12/2021 Comments No Sex and Gender Information Value Date Recorded Sex Assigned at Female 12/11/2021 11:11 PM BASKET BOTTOM MACHINE OPERATOR Legal Sex Female 6:19 AM BASKET BOTTOM MACHINE OPERATOR Gender Identity Female 09/29/2021 10:59 AM BASKET BOTTOM MACHINE OPERATOR Sexual Orientation Not on file Last Filed Vital Signs Vital Sign Reading Time Taken Comments Blood Pressure 129/58 02/25/2022 9:45 AM CDT Pulse 72 02/25/2022 9:45 AM CDT Temperature 36.8 C (98.2 F) 02/25/2022 9:30 AM CDT Respiratory Rate 14 02/25/2022 9:45 AM CDT Oxygen Saturation 97% 02/25/2022 9:45 AM CDT Inhaled Oxygen Concentration - - Weight 88.9 kg (196 lb) 02/25/2022 8:12 AM CDT Height 157.5 cm (5' 2 ) 02/25/2022 8:12 AM CDT Body Mass Index 35.85 02/25/2022 8:12 AM CDT Plan of Treatment Health Maintenance Due Date Last Done Comments JUAQUIN (AGES 45-75) - COL ON CA SCREENING 1950 COLON MONITORING 1950 COLONOSCOPY - COLON CA SCREENING 1950 CT COLONOGRAPHY - COLON CA SCREENING 1950 Colorectal Cancer Screening 1950 FIT - COLON CA SCREENING 1950 FLEX SIG - COLON CA SCREENING 1950 MEDICARE AWV 12 MONTHS 1950 HEPATITIS C SCREENING 06/26/1967 DTAP/TDAP/TD VACCINES (1 - Tdap) 1968 PNEUMOCOCCAL VACCINE 50+ (1 of 1 - PCV) 1999 ZOSTER VACCINE (1 of 2) 1999 MAMMOGRAM 07/23/2011 07/23/2009 COVID-19 VACCINE (3 - 2023-2 5 season) 2024 12/13/2020, 11/23/2020 Respiratory Syncytial Virus (RSV) Vaccine Pt: or over 60 yrs (1 - 1-dose 75+ series) 2024 DEPRESSION SCREENING 10/11/2024 INFLUENZA VACCINE (Season Ended) 2025 06/07/2021, 08/03/2020 BONE DENSITY TESTING Completed 07/23/2009 HEPATITIS B VACCINE Aged Out No longe r eligible based on patient's age to complete this topic HIB VACCINE Aged Out No longer eligi ble based on patient's age to complete this topic HPV VACCINE Aged Out No longer eligi ble based on patient's age to complete this topic MENINGOCOCCAL (Group B) VACCINE SHARED DECISION-MAKING Aged Out No longer eligible based on patient's age to complete this topic MENINGOCOCCAL GROUPS A/C/Y/W VACCINE Aged Out No longer eligible b ased on patient's age to complete this topic Procedures Procedure Name Priority Date/Time Associated Diagnosis Comments MAMMO BILAT SCREENING Today 07/23/2009 3:30 PM CDT Other Screening Mammogram DEXA BONE DENSITY AXIAL SKELETON Today 07/23/2009 3:15 PM CDT Special Screening for Osteoporosis from Last 3 Months or Most Recently Relevant to Health Maintenance Results * MAMMO SCREENING DIGITAL IMAGE BILAT (07/23/2009 3:30 PM CDT) Anatomical Region Laterality Modality Breast Bilateral Other 07/23/2009 3:30 PM CDT Narrative 07/24/2009 8:24 AM CDT EXAMINATION- Digital screening mammogram on 07/23/2009. COMPUTER CUSTOMER SUPPORT SPECIALIST- RT Samantha, RM PRIOR- 06/10/2006 from [facility] FINDINGS- Computer assisted detection was utilized. The tissue density is fatty. There is no significant change since the prior mammogram. ASSESSMENT- BIRADS Category 1- Negative mammogram. RECOMMENDATION- Follow up in one year. [facility] staff will contact and schedule patients with BIRADS categories 0, 4, and 5. Reading Chelsie VALENTINE M.D. Releasing Chelsie VALENTINE M.D. Released Date Time- 07/24/09823 Jay Jay CUMMINS M.D. RANDY DAMON ANNA R REF- RANDY GILMORE- PCPCATHY OSBORN SCP- Procedure Note Conor Valentine MD - 07/24/2009 EXAMINATION- Digital screening mammogram on 07/23/2009. COMPUTER CUSTOMER SUPPORT SPECIALIST- RT Samantha, LEOPOLDO PRIOR- 06/10/2006 from [facility] FINDINGS- Computer assisted detection was utilized. The tissue density is fatty. There is no significant change since the prior mammogram. ASSESSMENT- BIRADS Category 1- Negative mammogram. RECOMMENDATION- Follow up in one year. [facility] staff will contact and schedule patients with BIRADS categories 0, 4, and 5. Reading Chelsie VALENTINE M.D. Releasing Chelsie VALENTINE M.D. Released Date Time- 07/24/09823 Jay Jay CUMMINS M.D. ADM- RANDY GILMORE,CATHY Mello REF- DEIRDRERANDY ANNA R SCP- Cathy Giron MD MAMMO ORDERABLES Final Result * DEXA BONE DENSITY AXIAL SKELETON (07/23/2009 3:15 PM CDT) Anatomical Region Laterality Modality Other 07/23/2009 3:15 PM CDT Narrative 07/24/2009 4:59 PM CDT Bone densitometry of the lumbar spine and both hips. DATE- 07/23/2009 INDICATION- V82.81 perimenopausal TECHNIQUE- Dual photon bone densitometry was performed of the lumbar spine and both hips. FINDINGS- The bone mineral density of L1-L4 is 1.300 g/sq cm. This is 110 % of a young adult with a T-score of +1.0 which is normal by WHO criteria. In 2002, the T-score was +2.0 indicating bone mineral loss. Average bone mineral density of multiple regions of the right proximal femur is 1.111 g/sq cm. This is 110 % of a young adult with a T-score of +0.8 which is normal by WHO criteria. In 2002 the T-score was +1.9 indicating bone mineral loss. Average bone mineral density of multiple regions of the left proximal femur is 1.095 g/sq cm. This is 109 % of a young adult with a T-score of +0.7 which is normal by WHO criteria. In 2001 the T-score was not evaluated. Prior studies- 01/17/2002. IMPRESSION- 1. Normal lumbar spine and bilateral hip mineral density. 2. Mineral loss in the lumbar spine and right hip since 2001. Reading RadiologistBrenda GRANDE M.D. Releasing RadiologistBrenda GRANDE M.D. Released Date Time- 07/24/09 1659 Slps- AB M.D. RANDY DMAON ANNA R REF- DEAN, CATHERINE L CON- PCP- NIESEN, ANNA R SCP- Procedure Note Glo [place] MD - 07/24/2009 Bone densitometry of the lumbar spine and both hips. DATE- 07/23/2009 INDICATION- V82.81 perimenopausal TECHNIQUE- Dual photon bone densitometry was performed of the lumbar spine and both hips. FINDINGS- The bone mineral density of L1-L4 is 1.300 g/sq cm. This is 110 % of a young adult with a T-score of +1.0 which is normal by WHO criteria. In 2001, the T-score was +2.0 indicating bone mineral loss. Average bone mineral density of multiple regions of the right proximal femur is 1.111 g/sq cm. This is 110 % of a young adult with a T-score of +0.8 which is normal by WHO criteria. In 2001 the T-score was +1.9 indicating bone mineral loss. Average bone mineral density of multiple regions of the left proximal femur is 1.095 g/sq cm. This is 109 % of a young adult with a T-score of +0.7 which is normal by WHO criteria. In 2001 the T-score was not evaluated. Prior studies- 01/17/2002. IMPRESSION- 1. Normal lumbar spine and bilateral hip mineral density. 2. Mineral loss in the lumbar spine and right hip since 2001. Reading Radiologist- GLO GRANDE M.D. Releasing Radiologist- GLO GRANDE M.D. Released Date Time- 07/24/09 1659 Slps- AB Grajeda RANDY DAMON ANNA R REF- DEAN, CATHERINE L CON- PCP- CATHY GIRON- Cathy Giron MD DEXA ORDERABLES Final Result from Last 3 Months or Most Recently Relevant to Health Maintenance [place] [phone] [facility] MEDICARE [facility] Advance Directives Documents on File Type Date Recorded Patient Tube Coverer Expl anation Adv Directive/Living Will/POA 02/16/2022 10:54 AM * Full Code (Latest Code Status on File) Date Activated Date Inactivated Comments 12/10/2021 8:16 PM 12/14/2021 3:47 PM * Full Code Date Activated Date Inactivated Comments 07/18/2021 6:53 AM 07/21/2021 5:32 PM Care Teams Employment Law Attorney Relationship Specialty Start Date End Date Jacque Barajas, FOREST ENGINEER-PARIMUTUEL TICKET CASHIER [address] [place] [address] PCP - General 03/04/22 Di Riley MD [address] [place] [address] Family Medicine 07/19/21
--- OUTSIDE RECORDS SUMMARY | 2025-02-12 09:44 | XMS_ITS | Data Portability ---
Author Organization [place] [facility], [employer] Address [address] [place] [address] Care Team Providers Care Exhibit Builder Name Role Phone [facility] FAX OTHER Assessment Encounter Date Assessment Date Assessment LastModified by Organization Details LastModified Time 08/19/2021 08/19/2021 Medication Changes Lunesta 1 mg q HS for first line and Unisom as PRN. D/C Wellbutrin, D/C Xanax RENEA obtained. Records requested. Labs ordered to evaluate levels. Wellbutrin due to lowering seizure threshold and given the CVAs will look for another medication. Lunesta as first line for sleep and then Unisom for PRN. No XANAX at this time. Xanax is not for sleep and can find other medications for such intended purposes. Will look at other medications for Bipolar with Jess. Signs and symptoms of when to seek further care reviewed with patient. Patient to follow up with primary care provider or return to clinic for any worsening signs and symptoms. Always present to ER or Urgent Care with any progression of/alarming symptoms, significant changes in symptoms or any concerning or urgent matters. Patient verbalized agreement and understanding of treatment plan. F/U 1 week, sooner if needed Not available 08/19/2021 16:44:51 08/26/2021 08/26/2021 Medication Changes Vraylar 1.5 mg qD until done with samples then increase to Vraylar 3 mg qD. Will see how patient does on medication. Gabapentin 100 mg q HS Signs and symptoms of when to seek further care reviewed with patient. Patient to follow up with primary care provider or return to clinic for any worsening signs and symptoms. Always present to ER or Urgent Care with any progression of/alarming symptoms, significant changes in symptoms or any concerning or urgent matters. Patient verbalized agreement and understanding of treatment plan. F/U 4 weeks, sooner if needed Not available 08/26/2021 15:08:25 09/15/2021 09/15/2021 Medication Changes D/C Gabapentin Pregabalin 50 mg TID Omeprazole 40 mg q AM Increase Eszopiclone to 2-3 mg q HS Changing APAP ER from PRN to 2 tabs q 8h scheduled ACTUARIAL MANAGER ordered d/t dysphasia Signs and symptoms of when to seek further care reviewed with patient. Patient to follow up with primary care provider or return to clinic for any worsening signs and symptoms. Always present to ER or Urgent Care with any progression of/alarming symptoms, significant changes in symptoms or any concerning or urgent matters. Patient verbalized agreement and understanding of treatment plan. F/U 4 weeks, sooner if needed [email or web address] Not available 09/15/2021 16:01:21 10/13/2021 10/13/2021 Medication Changes Increase Pregabalin to 75 mg q 8 Eszopiclone 2 mg q HS Diclofenac 1% gel to be applied to painful joint areas as directed Alprazolam 0.5 mg q HS x 7 days. She will be off quarantine from [employer] and able to move about and will not need continued support of Alprazolam. If anxiety is an issue will look at something more prison such as an SSRI. Patient exhibited significant pill seeking behaviors at visit. Patient is already at a polypharmacy level and due to all the medications taken daily elimination of some would be beneficial. Signs and symptoms of when to seek further care reviewed with patient. Patient to follow up with primary care provider or return to clinic for any worsening signs and symptoms. Always present to ER or Urgent Care with any progression of/alarming symptoms, significant changes in symptoms or any concerning or urgent matters. Patient verbalized agreement and understanding of treatment plan. F/U 4 weeks, sooner if needed [email or web address] Not available 10/13/2021 14:06:46 11/10/2021 11/10/2021 Medication Changes Increase Lidocaine patches to 4 patches daily PRN. Patient will have to ask for them. Celebrex 100 mg as directed qD x 7 days then BID Napping at 4:30 pm in the afternoon. Goal is to change the afternoon therapy schedule to allow for earlier nap period. Therapy later in afternoon and then shower afterwards. Daughter is going to work with therapy to see if possible to move appointment times. has not had any testing for sleep apnea wake up more tired CT scan of cervical and thoracic spine to further evaluate possible stenosis or other degenerative process causing increasing pain Signs and symptoms of when to seek further care reviewed with patient. Patient to follow up with primary care provider or return to clinic for any worsening signs and symptoms. Always present to ER or Urgent Care with any progression of/alarming symptoms, significant changes in symptoms or any concerning or urgent matters. Patient verbalized agreement and understanding of treatment plan. F/U 4 weeks, sooner if needed [email or web address] Not available 11/10/2021 17:06:16 Plan of Treatment Reminders Order Date Submit Date Provider Last Modified By Organization Details Last Modified Time Details Appointments None recorded. Lab hemoglobin A1c, QN, blood 2020 [facility] Fax, [place], [address], 06:55:11 CMP, serum or plasma 2020 [facility] Fax, [place], [address], 06:55:11 CBC 2020 [facility] Fax, [address] [place], [address], 06:55:11 lipid panel, blood 2020 [facility] Fax, [address] [place], [address], 06:55:11 Referral speech therapy referral 2020 [facility] Fax, [address] [place], [address], 2 16:03:45 Procedures None recorded. Surgeries None recorded. Imaging CT, cervical spine, w/o contrast 2021 022 [facility], [address], [place], [address], 17:10:12 CT, thoracic spine, w/o [facility] [address], [place], [address], 17:10:13 Medication Orders Vraylar 3 mg capsule 2021 FLA[facility]IA Not available 17:06:36 celecoxib 100 mg capsule 2021 FLA[facility] Not available 17:06:40 Aspercreme (lidocaine ) 4 % topical patch 2021 [facility] Not available 17:06:33 diclofenac 1 % topical gel 2021 [facility] Not available 14:06:42 eszopiclon e 2 mg tablet 2021 [email or web address] Not available 13:31:00 alprazolam 0.5 mg tablet 2021 FLA[facility]IA Not available 14:01:43 pregabalin 75 mg capsule 2021 FLA[facility]IA Not available 14:06:53 acetaminop hen ER 650 mg tablet,ext ended release 2020 FLA[facility]IA Not available 15:46:40 eszopiclon e 1 mg tablet 2020 021 [email or web address] Not available 13:58:27 omeprazole 40 mg capsule,de layed release 2020 FLAVIA Not available 15:46:44 pregabalin 50 mg capsule 2020 021 Not available 14:01:54 Vraylar 1.5 mg capsule 2020 FLA[facility]IA Not available 15:26:41 Vraylar 3 mg capsule 2020 FLA[facility]IA Not available 15:20:30 gabapentin 100 mg capsule 2020 [email or web address] Not available 15:28:00 eszopiclon e 1 mg tablet 2020 [email or web address] Not available 13:58:27 Patient TargetsNo targets recorded. Patient Instructions Encounter Date Encounter Id Patient Instructions Last Modified By Organization Details Last Modified Time 09/15/2021 [id number] gastroesophageal reflux disease (GERD): care instructions Not available 09/15/2021 16:03:09 neuropathic pain : care instructions [email or web address] Not available 09/15/2021 16:03:09 11/10/2021 [id number] advance care planning: care instructions Not available 11/10/2021 17:06:19 How Napping Affe cts Sleep Homeostatic sleep pressure, also known as your sleep drive, is a reason why you feel energized after waking up and gradually become more tired as the day progresses. Aside from considering your natural circadian rhythm and sleep drive, timing your naps correctly also requires an understanding of sleep architecture and different components of your sleep cycle. The sleep cycle5 of a healthy adult is divided into four distinct stages. The first two stages consist of light, non-rapid eye movement (NREM) sleep, during which your heart rate, breathing rate, body temperature, and brain activity will all gradually decrease. Since these are light NREM stages, you can be aroused from sleep somewhat easily. The third stage of the cycle is composed of deep NREM sleep or slow-wave sleep. Your brain activity levels, heart and breathing rates, and body temperature will all reach their lowest points of the sleep cycle. Waking people up during this stage is fairly difficult compared to the first two NREM stages. Arousal from slow-wave sleep is often accompanied by feelings of grogginess and confusion. The final stage, rapid eye movement (REM) sleep, is characterized by a spike in brain activity and erratic eye movements. Your heartbeat and breathing rate will increase toward their normal waking levels, and dreams are more likely to occur during this stage. During your first sleep cycle of a given night, REM sleep typically begins about 90 minutes after you nod off. Initial sleep cycles contain more slow-wave sleep, whereas cycles in the latter part of the night include more REM sleep. If you nap in the morning, the sleep consists primarily of light NREM (and possibly REM) sleep. In contrast, napping later in the evening, as your sleep drive increases, will comprise more deep sleep. This, in turn, may disrupt your ability to fall asleep at night. Therefore, napping late in the day is discouraged. Based on findings from various studies, around 10 minutes is considered the best nap duration. This length of time allows you to catch a quick rest without entering slow-wave sleep and feeling excessively groggy after waking. One particular study evaluated subjects after they took five-, 10-, 20-, and 30-minute naps. Subjects who slept for 10 minutes reported the most improvements. They did not feel groggy or fatigued upon waking, and their overall cognitive performance after waking was strong. Moreover, they felt benefits from their nap for up to 155 minutes after waking. Those who slept for 20 to 30 minutes noted the same positive benefits from napping as those described above, but only after a 30 to 35 minute period of impaired alertness and performance. The five-minute nap did not produce many benefits for sleepers compared to those in the control group, who did not nap at all. The time of day is also important for napping. Most sleep experts recommend napping no later than 2 pm. As discussed above, napping prior to the mid-afternoon results in a combination of light and REM sleep, whereas napping after 2 pm results in more slow-wave sleep. This may affect your ability to fall asleep at a reasonable time later that night, potentially disrupting your nocturnal sleep cycle. [email or web address] Not available 11/10/2021 16:56:16 Reason for Referral Referring Physician: Jacque Barajas, Internal Medicine, Encounter Date: 09/15/2021 Results Created Date Observation Date Name Description Value Unit Range Abnormal Flag Note LastModifiedBy Organization Detail LastModifiedTime 08/25/20 21 08/16/2021 mitchell GOMEZnancy id arter y No observ ation record ed. [email or web address] Not Available 2020 11:15:21 08/28/20 21 08/16/2021 CT, brain , w/o contr ast No observ ation record ed. [email or web address] [place] [address], [place], [address], 08/28/2021 12:56:08 09/02/2008/17/2021 MRI, brain + brain stem, w/wo contr ast No observ ation record ed. [address] Radiology [facility], [place], [address], 09/02/2021 17:51:46 09/02/2008/17/2021 MRI, brain stem, w/o contr ast No observ ation record ed. [address], [place], [address], 09/02/2021 18:56:21 09/08/20 21 08/16/2021 US, doppl er echoc ardio gram No observ ation record ed. [email or web address] Not Available 2020 09:39:05 10/09/2010/08/2021 US, doppl er, arter ial No observ ation record ed. [facility] ([employer]) [address] [place], [place], [address], 10/09/2021 10:08:37 11/20/19 22 11/20/2021 rhyth m strip , EKG* No observ ation record ed. [email or web address] Not Available 2021 08:35:08 11/20/19 22 11/20/2021 XR, chest , 2 view No observ ation record ed. Not Available 2021 08:28:57 Result Notes None recorded. Problems Name Problem SNOMED Code Status Onset Date Resolution Date Notes Provider Name and Address Organization Details Recorded Time Type 2 diabetes mellitus without complication 166085239 Active 2020 Jacque Barajas, GLOBAL CREATIVE CHAIRMAN-BC, PMHNP-BC [address], [place], [address], [place] [facility] 1 16:39:59 Hyperlipidemia 44329523 Active 2020 Jacque Barajas, GLOBAL CREATIVE CHAIRMAN-BC, PMHNP-BC [address], [place], [address], [place] [facility] 16:40:00 Bipolar disorder 88289899 Active 2020 Jacque Barajas, GLOBAL CREATIVE CHAIRMAN-BC, PMHNP-BC [address], [place], [address], [place] [facility] 15:06:08 Neuropathy 159724887 Active 2020 Jacque Barajas, GLOBAL CREATIVE CHAIRMAN-BC, PMHNP-BC [address], [place], [address], [place] [facility] 15:28:04 Osteoarthritis of multiple joints 646434023 Active 2020 Jacque Barajas, GLOBAL CREATIVE CHAIRMAN-BC, PMHNP-BC [address], [place], [address], [place] [facility] 15:38:46 Insomnia 539016488 Active 2020 Jacque Barajas, GLOBAL CREATIVE CHAIRMAN-BC, PMHNP-BC [address], [place], [address], [place] [facility] 1 16:01:53 Gastroesophage al reflux disease without esophagitis 986857986 Active 2020 Crystal Brianne Barajas, GLOBAL CREATIVE CHAIRMAN-BC, PMHNP-BC [address], [place], [address], [place] [facility] 1 16:01:57 Anxiety 61564499 Active 2021 Crystal Brianne Barajas, GLOBAL CREATIVE CHAIRMAN-BC, PMHNP-BC [address], [place], [address], [place] [facility] 2 14:02:40 Advance care planning Active 2021 Jacque Barajas, GLOBAL CREATIVE CHAIRMAN-BC, PMHNP-BC [address] [place], [address], [facility] 2 13:32:48 Problem Notes None recorded. Procedures Surgical History Date Name Laterality Status Provider Name and Address Organization Details Recorded Time bypass gastroenterostomy completed Shamyra Williamson [facility] 08/08/2021 16:21:43 partial excision of small intestine completed Shamyra Williamson [place] [facility] 08/08/2021 16:22:14 cholecystectomy completed Shamyra Williamson [facility] 08/08/2021 16:22:27 repair of inguinal hernia completed Janay Jaycox [facility] 09/02/2021 11:09:45 Imaging Results Imaging Date Name Status LastModified by Organization Details LastModified Time 08/16/2021 US, duplex, carotid artery completed [email or web address] Information not available 08/25/2021 11:15:21 08/16/2021 CT, brain, w/o contrast completed [address] [place] [address], [address], 08/28/2021 12:56:08 08/17/2021 MRI, brain + brain stem, w/wo contrast completed [address] [place] [address] Route [facility] [place] [address], [address], 09/02/2021 17:51:46 08/17/2021 MRI, brain stem, w/o contrast completed [address] [place] [address], [address], 09/02/2021 18:56:21 08/16/2021 US, doppler echocardiogram completed [email or web address] Information not available 09/08/2021 09:39:05 10/08/2021 US, doppler, arterial completed [facility] ([employer]) [address], [place], [address], 10/09/2021 10:08:37 11/20/2021 rhythm strip, EKG* completed Inform ation not available 11/21/2021 08:35:08 11/20/2021 XR, chest, 2 view completed [email or web address] Informa tion not available 11/21/2021 08:28:57 Procedure Notes None recorded. Medical Equipment None Reported. Allergies Allergen ID Allergen Name Allergen Category Reaction Reaction Severity Criticality Documentation Date Start Date Code Code System Note Provider Name and Address Organization Details Recorded Time 4172 Product containin g penicilli n (product) medicatio n Not available Not available Not available 08/08/2021 [id number] 8001 SNOMED Shamyra Williamson null, [place] - [facility] 16:07:54 4173 azithromy miguel medicatio n Not available Not available Not available 08/08/2021 [id number] RxNorm Shamyra Williamson null, [place] - [facility] 16:09:34 Medications Name Sig Start Date Stop Date Status Note LastModified by Organization Details LastModified Time atorvastati n 40 mg tablet TAKE ONE TABLET BY MOUTH DAILY AT BEDTIME active Not Available Not Available No t Available metformin 500 mg tablet TAKE ONE TABLET BY MOUTH 2 TIMES A DAY WITH A MEAL active Not Available Not Available No t Available doxycycline hyclate 100 mg capsule TK 1 C PO BID FOR 10 DAYS 08/08 completed Not Available Not Available Not Available trazodone 50 mg tablet 08/26 completed Not Available Not Available Not Available hydrocodone 5 mg-acetamin ophen 325 mg tablet Take 0.5 tablets every 6 hours by oral route as needed. 08/19 completed Not Available Not Available Not Available ondansetron HCl 8 mg tablet TAKE 1 TABLET BY MOUTH EVERY 8 HOURS NEEDED FOR NAUSEA OR VOMITING 08/08 completed Not Available Not Available Not Available clopidogrel 75 mg tablet TAKE ONE TABLET BY MOUTH DAILY EVERY MORNING active Not Available Not Available No t Available ciprofloxac in 250 mg tablet TK 1 T PO Q 12 H 08/08 completed Not Available Not Available Not Available omeprazole 40 mg capsule,del ayed release Take 1 capsule every day by oral route before meals for 30 days. active Not Available Not Available No t Available alprazolam 0.5 mg tablet Take 1 tablet every day by oral route at bedtime for 7 days. 01/03/ 2022 01/12 /2022 completed Not Available Not Available Not Available alprazolam 0.25 mg tablet TAKE ONE TABLET BY MOUTH DAILY AT BEDTIME NEEDED active Not Available Not Available No t Available bupropion HCl 75 mg tablet Take 1 tablet every day by oral route. 08/19 completed Not Available Not Available Not Available docusate sodium 100 mg capsule Take 1 capsule every day by oral route for 14 days. active Not Available Not Available No t Available aspirin 81 mg chewable tablet TAKE ONE TABLET BY MOUTH DAILY active Not Available Not Available No t Available gabapentin 100 mg capsule TAKE ONE CAPSULE BY MOUTH DAILY AT BEDTIME active Not Available Not Available No t Available nystatin 100,000 unit/gram topical powder 08/26 completed Not Available Not Available Not Available polyethylen e glycol 3350 17 gram/dose oral powder 08/26 completed Not Available Not Available Not Available celecoxib 100 mg capsule Take 1 capsule orally daily x 7 days then take 1 capsule orally BID active Not Available Not Available No t Available Arthritis Pain Relief (acetaminop hen) ER 650 mg tablet,exte nd release TAKE TWO TABLETS BY MOUTH EVERY 8 HOURS active Not Available Not Available No t Available Senna Plus 8.6 mg-50 mg tablet 08/26 completed Not Available Not Available Not Available Sleep Aid (doxylamine ) 25 mg tablet TAKE ONE TABLET BY MOUTH AT BEDTIME active Not Available Not Available No t Available eszopiclone 3 mg tablet Take 1 tablet every day by oral route for 30 days. active Not Available Not Available No t Available eszopiclone 2 mg tablet Take 1 tablet every day by oral route at bedtime for 30 days. 11/10 completed Not Available Not Available Not Available eszopiclone 1 mg tablet TAKE TWO TO THREE TABLETS BY MOUTH DAILY 10/22 completed Not Available Not Available Not Available pregabalin 50 mg capsule Take 1 capsule 3 times a day by oral route for 30 days. 10/13 completed Not Available Not Available Not Available pregabalin 75 mg capsule Take 1 capsule every 8 hours by oral route for 30 days. active Not Available Not Available No t Available alprazolam take 0.25mg po tid prntake 0.5mg po bedtime 08/19 completed Not Available Not Available Not Available diclofenac 1 % topical gel APPLY 2 GRAMS TO THE AFFECTED joint AREA(S) BY TOPICAL ROUTE 4 TIMES PER DAY active Not Available Not Available No t Available Vraylar 1.5 mg capsule Take 1 capsule every day by oral route. 09/15 completed Not Available Not Available Not Available Vraylar 3 mg capsule Take 1 capsule every day by oral route for 30 days. active Not Available Not Available No t Available Aspercreme (lidocaine) 4 % topical patch Apply 4 patch daily to bilateral shoulders , Dhruv arms, and dhruv hands PRN wearing for 12 hours and off for 12 hours 2021 active Not Available Not Available Not Avai lable Vitals Date Recorded Heart rate Respiratory rate Oxygen saturation Oxygen saturation in Arterial blood by Pulse oximetry Body temperature Systolic blood pressure Diastolic blood pressure Provider Name and Address Organization Details Last Updated DateTime 1 80 /min 18 /min 97 % 97 % 97.7 [degF] 118 mm[Hg] 80 mm[Hg] Shantal Bianca [facility] 1 16:35:07 Date Recorded Heart rate Respiratory rate Oxygen saturation Oxygen saturation in Arterial blood by Pulse oximetry Body temperature Body height Systolic blood pressure Diastolic blood pressure Provider Name and Address Organization Details Last Updated DateTime 1 100 /min 18 /min 97 % 97 % 97.3 [degF] 157.48 cm 132 mm[Hg] 86 mm[Hg] Shamyra Williamson [facility] 1 14:40:50 Date Recorded Body height Heart rate Respiratory rate Oxygen saturation Oxygen saturation in Arterial blood by Pulse oximetry Body temperature Systolic blood pressure Diastolic blood pressure Provider Name and Address Organization Details Last Updated DateTime 1 157.48 cm 99 /min 20 /min 98 % 98 % 98.2 [degF] 154 mm[Hg] 76 mm[Hg] Janay Arturograntox [place] [facility] 1 16:02:02 Date Recorded Body height Heart rate Respiratory rate Oxygen saturation Oxygen saturation in Arterial blood by Pulse oximetry Body temperature Systolic blood pressure Diastolic blood pressure Provider Name and Address Organization Details Last Updated DateTime 2 157.48 cm 88 /min 20 /min 97 % 97 % 98.1 [degF] 128 mm[Hg] 80 mm[Hg] Shantal [facility] 2 14:49:39 Date Recorded Body height Body mass index (BMI) Body weight Heart rate Respiratory rate Oxygen saturation Oxygen saturation in Arterial blood by Pulse oximetry Body temperature Systolic blood pressure Diastolic blood pressure Provider Name and Address Organization Details Last Updated DateTime 2 157.48 cm 38.7 kg/m2 90810.4 3 g 76 /min 20 /min 98 % 98 % 96.8 [degF] 132 mm[Hg] 84 mm[Hg] Melody [facility] 2 14:55:03 Date Recorded Body height Heart rate Respiratory rate Oxygen saturation Oxygen saturation in Arterial blood by Pulse oximetry Body temperature Systolic blood pressure Diastolic blood pressure Provider Name and Address Organization Details Last Updated DateTime 2 157.48 cm 103 /min 20 /min 95 % 95 % 97.9 [degF] 130 mm[Hg] 90 mm[Hg] Melody [facility] 2 14:55:29 Social History Question Answer Notes LastModified by Organizat ion Details LastModified Time Tobacco Smoking Status Never Smoker Melody helton, [facility] 08/08/2021 16:10:23 Do You Have An Advance Directive? Yes Information n ot available 08/08/2021 What Is Your Level Of Alcohol Consumption? None Information not available 08/08/2021 Are You Currently Sexually Active With Anyone Who Has Traveled (within The Last 12 Weeks) To A Zika-affected Area? No Information not available 08/08/2021 Are You Blind Or Do You Have Difficulty Seeing? Yes Information n ot available 08/08/2021 What Is Your Level Of Caffeine Consumption? None Information not available 08/08/2021 What Type Of Volunteer Firefighter Do You Use? None Information not available 08/08/2021 What Is Your Code Status? DNR Information not available 08/08/2021 In The 14 Days Before Symptom Onset, Have You Had Close Contact With A Laboratory-confirm ed COVID-19 While That Case Was Ill? No Information n ot available 08/08/2021 In The 14 Days Before Symptom Onset, Have You Had Close Contact With A Person Who Is Under Investigation For COVID-19 While That Person Was Ill? No Information not available 08/08/2021 Have You Been To An Area Known To Be High Risk For COVID-19? No Information not available 08/08/2021 Are You Currently Employed? No Information not available 08/08/2021 Are You Deaf Or Do You Have Serious Difficulty Hearing? Yes Information not available 08/08/2021 What Type Of Diet Are You Following? REGULAR Information n ot available 08/08/2021 Have You Processed Blood Or Body Fluids From An Ebola Virus Disease Patient Without Appropriate PPE? No Information not available 08/08/2021 Do You Reside In Or Have You Traveled To An Area Where Ebola Virus Transmission Is Active? No Information not available 08/08/2021 What Is The Highest Grade Or Level Of School You Have Completed Or The Highest Degree You Have Received? [id number] Information not available 08/08/2021 Have There Been Any Changes To Your Family Or Social Situation? No Information no t available 08/08/2021 What Is The Fluoride Status Of Your Home? Unknown Information not available 08/08/2021 Are There Any Guns Present In Your Home? No Information not available 08/08/2021 Have You Recently Or Are You Planning To Travel To An Area With Zika Virus? No Information not available 08/08/2021 Do You Have A Medical Power Of Program Clerk? Yes Information not available 08/08/2021 What Was The Date Of Your Most Recent Tobacco Screening? 08/08/2021 Information not available 08/08/2021 How Many Children Do You Have? 1 Information not available 08/08/2021 What Is Your Relationship Status? Information not available 08/08/2021 Are You Sexually Active? No Information not available 08/08/2021 Do You Have Smoke And Carbon Monoxide Detectors In Your Home? Yes Information not available 08/08/2021 Are You Passively Exposed To Smoke? No Information no t available 08/08/2021 Do You Feel Stressed (tense, Restless, Nervous, Or Anxious, Or Unable To Sleep At Night)? [id number] Information not available 08/08/2021 Do You Use Any Illicit Or Recreational Drugs? No Information not available 08/08/2021 Have You Recently Traveled Abroad? No Information not available 08/08/2021 Are You Currently In School? No Information not available 08/08/2021 Do You Or Have You Ever Used Any Other Forms Of Tobacco Or Nicotine? No Information not available 08/08/2021 Sex: Female Functional Status Question Answer Note LastModified by Organizat ion Details LastModified Time Do you have difficulty walking or climbing stairs? Yes Information not available 08/08/2021 Do you have transportation difficulties? Yes Information not available 08/08/2021 Are you able to walk? NOINDWHEEL Information not available 08/08/2021 Do you have difficulty doing errands alone? Yes Information not available 08/08/2021 Are you able to care for yourself? No Information n ot available 08/08/2021 Do you have difficulty dressing or bathing? Yes Information not available 08/08/2021 Mental Status Question Answer Note LastModified by Organization D etails LastModified Time Do you have difficulty concentrating, remembering or making decisions? Yes Information no t available 08/08/2021 Family History Relationship Description Onset Age of this Age Resolved Age Notes LastModified by Organization Details LastModified Time Brother Cerebrovascu lar accident Not available 16:10:38 Father Malignant neoplasm of lung Not available 2020 16:10:49 Medical History Condition Response Diabetes Y Anxiety Disorder Y Psychiatric Diseases / Disorders Y Obesity Y Cerebrovascular Accident (CVA) Y Endocrine Diseases / Disorders Gastrointestinal Diseases / Disorders Hyperlipidemia Y Insomnia Y Dementia Y Depression Y Hypertension Y Gynecological HistoryNo gynecological history recorded. Obstetrics History GPAL:G 0 P 0 0 0 0 Past Encounters Encounter ID Performer Location Encounter Start Date Encounter Closed Date Diagnosis/Indication Diagnosis SNOMED-CT Code Diagnosis ICD10 Code Diagnosis Note [id number] Jacque Barajas, [employer] CHAIRMAN-BC, PMHNP-BC Main Office [address] [place] [address] 08/26/2021 06:36:16 08/26/2021 15:12:55 Bipolar disorder 31589871 F31.9 Neuropathy 363255245 G62 .9 [id number] [facility] Main Office [address] [place] [address] 08/19/2021 15:13:40 08/19/2021 16:47:04 Hyperlipidemia 97913122 E78.5 Type 2 josé betes mellitus without complication 448525685 E11.9 Insomnia 685176965 G47.0 0 [id number] Jacque Barajas [facility] Main Office [address] [place] [address] 09/15/2021 06:40:47 09/15/2021 16:21:15 Bipolar disorder 90284996 F31.9 Vrylar 3 mg qD and will evaluate at next visit to determine if at therapeuti c level. Neuropathy 713364077 G62 .9 Dysphagia 35862846 R13.1 0 Gastroesop hageal reflux disease without esophagitis 132946483 K21.9 Insomnia 938266793 G47.0 0 Osteoarthr itis of multiple joints 234285408 M15.9 [id number] [facility] Main Office [address] [place] [address] 10/13/2021 13:55:28 10/13/2021 15:26:36 Neuropathy 202109046 G62.9 Insomnia 782463321 G47.0 0 Osteoarthr itis of multiple joints 970093766 M15.9 Anxiety 02568345 F41.9 [id number] [facility] Main Office [address] [place] [address] 11/10/2021 07:26:37 11/11/2021 18:07:56 Neuropathy 772535685 G62.9 Insomnia 739877106 G47.0 0 Continue Lunesta. Will try changes to schedule to nap earlier in the day, so when she does go to bed at 10:30 pm she would be more ready for bed. Osteoarthr itis of multiple joints 179702206 M15.9 Advance care planning 71 6803093 Z71.89 Cervical radiculopathy 57219101 M54.12 Thoracic back pain 69024 8004 M54.6 Bipolar disorder 2015932 4 F31.9 Vrylar 3 mg qD and will evaluate at next visit to determine if at therapeuti c level. Health Concerns Section Related Observation LastModified by Organization Detai ls LastModified Time None Recorded Concern Status LastModified by Organization Details LastModified Time None Recorded Advance Directives Directive Y: Payers Encounter Date Sequence Insurance Name Policy Number Policy [place] Covered Member ID [place] Member ID Guarantor Name 08/19/2021 1 [place] Brandie Vincent Rainermina [id number] Shameem Coppotelli 08/19/2021 2 [employer] OPTIONS (MEDICARE SUPPLEMENT) Brandie Powell [id number] Shameem Coppotelli 08/26/2021 1 [place] Melisa Powell [id number] Shameem Coppotelli 08/26/2021 2 [employer] OPTIONS (MEDICARE SUPPLEMENT) Brandie Powell [id number] Shameem Coppotelli 09/15/2021 1 [place] Vincent Sherry [id number] Shameem Coppotelli 09/15/2021 2 [employer] OPTIONS (MEDICARE SUPPLEMENT) Brandie Powell [id number] Shameem Coppotelli 10/13/2021 1 [place]ie Melisa Powell [id number] Shameem Coppotelli 10/13/2021 2 [employer] OPTIONS (MEDICARE SUPPLEMENT) Brandie Powell [id number] Shameem Coppotelli 11/10/2021 1 [place] Brandie Melisa Powell [id number] Shameem Coppotelli 11/10/2021 2 [employer] OPTIONS (MEDICARE SUPPLEMENT) Brandie Powell [id number] Shameem Coppotelli Notes Date Note Type Note Provider Name and Address Organization Details Recorded Time text/html Diabetes F/UReported bypatient.Context:seeing eye doctor regularly; checking feet regularly Associated Symptoms:no weight gain; no weight loss; no dizziness; no sweats; no headaches; no confusion; no increased thirst; no increased appetite; no increased urination; no blurred vision; no numbness of feet; no calluses on feetHyperlipidemiaReported bypatient.Control:usually well controlled; improving; at goal Compliance:compliant; compliant with diet; exercises Complications:no coronary artery disease; no peripheral artery disease; no cardiovascular disease LEVI Morocho, DUNCAN [address] [place], [address], [facility] 08/19/2021 16:45:45 text/html Anxiety/DepressionReported bypatient.Quality:symptoms worse in the evening;symptoms worse during the day;mood worse Severity:denies suicidal ideations;unable to maintain relationships;interference with household activities;interference with sleep Duration:symptoms lasting over 2 weeks Onset/Timing:still present Context:major life stressors Associated Symptoms:denies homicidal ideations; no significant weight gain; no significant weight loss; no visual/auditory hallucinations; no delusions; no shortness of breath; no anxiety; no crying spells; no panic; no isolation; appetite good; no apathy; maintaining functionality;emotional lability;high irritability;depression;res tlessness/agitation;sleep disturbances;inability to make decisions;social withdrawal;decreased effectiveness/productivity; functional impairment;decreased energy;poor concentrationPeripheral NeuropathyReported bypatient.Location:no weak limbs;numbness;tingling;poo r balance Severity:moderate Duration:has noted for months Onset/Timing:worse Context:change in mood;change in sleep Modifying Factors:symptoms worse at night/at rest Associated Symptoms:no other pain; no fatigue; no weakness; no difficulty in the dark; does not stumble; does not fall; no foot dragging; no loss of muscle mass; does not drop items; no periodic limb movement in sleep (PLMS); no restless legs; no tremors; no dizziness; no blurred vision; no urinary loss of control; no low back pain;difficulty climbing stairs;difficulty walking on uneven surfaces LEVI Morocho, DUNCAN [address] [place], [address], [facility] 08/26/2021 15:09:05 text/html Anxiety/DepressionReported bypatient.Quality:symptoms worse in the evening;symptoms worse during the day;mood worse Severity:denies suicidal ideations;unable to maintain relationships;interference with household activities;interference with sleep Duration:symptoms lasting over 2 weeks Onset/Timing:still present Context:major life stressors Associated Symptoms:denies homicidal ideations; no significant weight gain; no significant weight loss; no visual/auditory hallucinations; no delusions; no shortness of breath; no anxiety; no crying spells; no panic; no isolation; appetite good; no apathy; maintaining functionality;emotional lability;high irritability;depression;res tlessness/agitation;sleep disturbances;inability to make decisions;social withdrawal;decreased effectiveness/productivity; functional impairment;decreased energy;poor concentrationJoint & Soft Tissue PainReported bypatient.Location:joint pain Quality:aching;dull Timing:constant Severity:variable Alleviating Factors:nothing helps Aggravating Factors:cannot identify Associated Symptoms:no weakness; no numbness; no tingling; no swelling; no redness; no warmth; no ecchymosis; no catching/locking; no popping/clicking; no buckling; no grinding; no instability; no radiation down leg; no fever/chills; no weight loss; no change in bowel/bladder habitsPeripheral NeuropathyReported bypatient.Location:no weak limbs;numbness;tingling;poo r balance Severity:moderate Duration:has noted for months Onset/Timing:worse Context:change in mood;change in sleep Modifying Factors:symptoms worse at night/at rest Associated Symptoms:no other pain; no fatigue; no weakness; no difficulty in the dark; does not stumble; does not fall; no foot dragging; no loss of muscle mass; does not drop items; no periodic limb movement in sleep (PLMS); no restless legs; no tremors; no dizziness; no blurred vision; no urinary loss of control; no low back pain;difficulty climbing stairs;difficulty walking on uneven surfacesReflux/GERDReported bypatient.Symptomsno difficulty swallowing; no pain swallowing; no postprandial pain; heartburn Quality:burning Severity:worsening Duration:present <1 month Onset/Timing:gradual onset Context:non-smoker; no drug/alcohol abuse; no drug alcohol withdrawal; not related to food/drink Associated Symptoms:no frequent coughing; no feeling of fullness/mass in throat; no hoarseness; no belching/burping; no nausea; no vomiting; not vomiting blood; no regurgitation; no shortness of breath; no chest pain; no pain when swallowing; no bad taste; no decreased appetite; no weight loss; no black/tarry stools; no fatigue; no throat pain; no dental erosion; no bloating; no early satiety; no halitosis;food getting stuck;heartburn;difficulty swallowing Jacque Barajas, [employer] CHAIRMAN-BC, PMHNP-BC [address] [place], [address], [facility] 09/15/2021 16:13:03 2 text/html Anxiety/DepressionReported bypatient.Quality:increased anxiety Severity:denies suicidal ideations;interference with sleep Duration:symptoms lasting over 2 weeks Onset/Timing:still present Context:major life stressors Associated Symptoms:denies homicidal ideations; no significant weight gain; no significant weight loss; no visual/auditory hallucinations; no delusions; no shortness of breath; no crying spells; no panic; no isolation; appetite good; no apathy; maintaining functionality;anxiety;sleep disturbancesJoint & Soft Tissue PainReported bypatient.Location:joint pain Quality:aching;dull Timing:constant Severity:variable Alleviating Factors:nothing helps Aggravating Factors:cannot identify Associated Symptoms:no weakness; no numbness; no tingling; no swelling; no redness; no warmth; no ecchymosis; no catching/locking; no popping/clicking; no buckling; no grinding; no instability; no radiation down leg; no fever/chills; no weight loss; no change in bowel/bladder habitsPeripheral NeuropathyReported bypatient.Location:no weak limbs;numbness;tingling;poo r balance Severity:moderate Duration:has noted for months Onset/Timing:worse Context:change in mood;change in sleep Modifying Factors:symptoms worse at night/at rest Associated Symptoms:no other pain; no fatigue; no weakness; no difficulty in the dark; does not stumble; does not fall; no foot dragging; no loss of muscle mass; does not drop items; no periodic limb movement in sleep (PLMS); no restless legs; no tremors; no dizziness; no blurred vision; no urinary loss of control; no low back pain;difficulty climbing stairs;difficulty walking on uneven surfaces Jacque Decker Karl, [employer] CHAIRMAN-BC, PMHNP-BC [address] [place], [address], [facility] 10/13/2021 14:55:39 2 text/html Anxiety/DepressionReported bypatient.Quality:symptoms improved Severity:denies suicidal ideations; able to maintain relationships Duration:symptoms lasting over 2 weeks Onset/Timing:still present Context:major life stressors Associated Symptoms:denies homicidal ideations; no significant weight gain; no significant weight loss; no visual/auditory hallucinations; no delusions; no shortness of breath; no crying spells; no panic; no isolation; appetite good; no apathy; maintaining functionality;sleep disturbancesNotes:Napping at 4:30 pm in the afternoon Joint & Soft Tissue PainReported bypatient.Location:joint pain; Having a lot of pain that is starting in the back radiating down through shoulders down the arms. Good day at a 3 and bad 8 Quality:aching;burning(numb ness);throbbing;sharp Timing:constant Severity:variable Alleviating Factors:nothing helps Aggravating Factors:cannot identify Associated Symptoms:no weakness; no numbness; no tingling; no swelling; no redness; no warmth; no ecchymosis; no catching/locking; no popping/clicking; no buckling; no grinding; no instability; no radiation down leg; no fever/chills; no weight loss; no change in bowel/bladder habitsPeripheral NeuropathyReported bypatient.Location:no weak limbs;numbness;tingling;poo r balance Severity:moderate Duration:has noted for months Onset/Timing:worse Context:change in mood;change in sleep Modifying Factors:symptoms worse at night/at rest Associated Symptoms:no other pain; no fatigue; no weakness; no difficulty in the dark; does not stumble; does not fall; no foot dragging; no loss of muscle mass; does not drop items; no periodic limb movement in sleep (PLMS); no restless legs; no tremors; no dizziness; no blurred vision; no urinary loss of control; no low back pain;difficulty climbing stairs;difficulty walking on uneven surfaces Jacque Barajas, [employer]ATIVE CHAIRMAN-BC, PMHNP-BC [address] [place], [address], [facility] 11/10/2021 17:07:45 OBGyn Episode No OBEpisode recorded.
--- NOTE | 2025-02-13 09:06 | REHSTMBS ---
Assessment and note entered by Luz Scott, [employer] RECOV[employer] OPERATOR Modified Barium Swallow Evaluation Feeding Type Recommended Oral Food Consistency Regular, Level 7 Liquid Consistency Thin (0) ST Clinical Summary This pleasant and cooperative patient was seen for an outpatient modified barium swallow. She was alert, oriented, and able to follow commands. She is currently on a regular diet and reports difficulty with food/liquid that won't go down and then comes out of her nose. She also reported difficulty with pills. She denied coughing or choking associated with liquids or solids. She denied recent pneumonia but stated she's had three CVAs, the most recent one about four years ago. Oral mucosa is normal; natural dentition is in good condition; an informal oral peripheral exam revealed lingual and labial structures to be WFL. It was noted that the pt sounded hypernasal, but velar retraction appeared WNL. She was able to dry swallow on command and exhibited clear vocal quality before the test. The patient was seated for a lateral view and presented with 5 ml of thin liquid barium via a spoon, pudding consistency barium via a spoon, cracker coated with barium pudding via a spoon, and uncontrolled thin liquid barium. This was presented via a cup & straw. Oral preparatory and oral phase symptoms: none. Pharyngeal phase symptoms: WFL but shallow laryngeal penetration occurred (age appropriate), but cleared without aspiration. Esophageal stage symptoms: none. Overall, no aspiration occurred. Impressions: Functional swallow ability through all stages of the swallow. No further ST is warranted at this time.
== END 2025-02-12 09:13 | disposition home or self-care (01) ==
PROVIDERS: PCP Family Medicine; Visit Provider Family Medicine
DX: R13.10 Dysphagia, unspecified (principal)
CPT/HCPCS: 92611